=== PATIENT | male | born 1950 | race Caucasian/White ===

== ENCOUNTER 2018-01-14 13:24 | Emergency (ER) | payer OTHER ==
[2018-01-14] MEDS ORDERED: IPRATROPIUM/ALBUTEROL SULFATE 3 ML SOLUTION IH ONE ×2 (14:32→16:22)
[2018-01-14] MEDS ORDERED: METHYLPREDNISOLONE SOD SUCC 125MG/2ML VIAL ONE (14:53)
== END 2018-01-14 17:50 | disposition home or self-care (01) ==
LOC: EDH 13:24
DX: J44.1 Chronic obstructive pulmonary disease with (acute) exacerbation (principal); Z85.038 Personal history of other malignant neoplasm of large intestine; Z85.46 Personal history of malignant neoplasm of prostate
CPT/HCPCS: 71045; 84484; 93005; 94640 ×2; 96374; 99285; J2930

== ENCOUNTER 2018-02-17 16:10 | Emergency (ER) | payer OTHER ==
[2018-02-17 16:32] LABS: BASOPHILS % (AUTO) 1.1 % (0.0-5.0); EOSINOPHILS % (AUTO) 3.9 % (0.0-8.0); HEMATOCRIT 42.6 % (42-54); LYMPHOCYTES % (AUTO) 18.5 % (21.0-51.0); MEAN CORPUSCULAR HEMOGLOBIN 28.4 pg (27.0-33.0); MEAN CORPUSCULAR HGB CONC 32.8 g/dL (32.0-36.0); MEAN CORPUSCULAR VOLUME 86.7 fL (79-99); MONOCYTES % (AUTO) 9.4 % (3.0-13.0); NEUTROPHILS % (AUTO) 67.1 % (40.0-77.0); NUCLEATED RED BLOOD CELLS 0.1 % (0.0-0.19); PLATELET COUNT (AUTO) 318 K/uL (130-400); RED BLOOD CELL COUNT(AUTO) 4.91 MIL/uL (4.50-6.20); RED CELL DISTRIBUTION WIDTH 14.4 % (11.0-15.5); WHITE BLOOD COUNT (AUTO) 8.2 K/uL (4.8-10.8)
[2018-02-17 16:35] LABS: CREATININE 1.1 mg/dL (0.5-1.5); POTASSIUM 4.4 mmol/L (3.5-5.1)
[2018-02-17 16:40] LABS: ALBUMIN 3.8 g/dL (3.5-5.0); BILIRUBIN,TOTAL 0.6 mg/dL (0.2-1.0); TOTAL PROTEIN, SERUM 7.9 g/dL (6.0-8.3)
[2018-02-17] MEDS ORDERED: IPRATROPIUM/ALBUTEROL SULFATE 3 ML SOLUTION IH ONE (16:40)
[2018-02-17 16:58] LABS: B-TYPE NATRIURETIC PEPTIDE 46 pg/mL (0-100)
[2018-02-17] MEDS ORDERED: METHYLPREDNISOLONE SOD SUCC 125MG/2ML VIAL ONE (16:59)
== END 2018-02-17 19:13 | disposition home or self-care (01) ==
LOC: EDH 16:10
DX: J44.1 Chronic obstructive pulmonary disease with (acute) exacerbation (principal); J98.4 Other disorders of lung; I10 Essential (primary) hypertension; F41.9 Anxiety disorder, unspecified; Z90.49 Acquired absence of other specified parts of digestive tract; Z87.891 Personal history of nicotine dependence
CPT/HCPCS: 36415; 71045; 80053; 80198; 83880; 84484; 85025; 93005; 94640; 96374; 99284; J2930

== ENCOUNTER → 2018-07-30 | Outpatient (CLI) | payer OTHER | END | disposition home or self-care (01) | LOC: SHCH 13:39 | PROVIDERS: ATTEND Internal Medicine Cardiovascular Disease | DX: I08.2 Rheumatic disorders of both aortic and tricuspid valves (principal); I11.9 Hypertensive heart disease without heart failure; I51.5 Myocardial degeneration; J44.9 Chronic obstructive pulmonary disease, unspecified | CPT/HCPCS: 93306 ==

== ENCOUNTER → 2020-03-16 | Outpatient (CLI) | payer OTHER | END | disposition home or self-care (01) | LOC: SHCH 12:50 | PROVIDERS: ATTEND Internal Medicine Cardiovascular Disease | DX: R60.9 Edema, unspecified (principal) | CPT/HCPCS: 93970 ==

== ENCOUNTER → 2023-02-28 | Outpatient (CLI) | payer OTHER | END | disposition home or self-care (01) | LOC: RAH 12:48 | PROVIDERS: ATTEND Family Medicine | DX: I31.39 Other pericardial effusion (noninflammatory) (principal); I08.3 Combined rheumatic disorders of mitral, aortic and tricuspid valves | CPT/HCPCS: 93306 ==

== ENCOUNTER → 2023-04-11 | Outpatient (CLI) | payer OTHER | END | disposition home or self-care (01) | LOC: RAH 10:01 | PROVIDERS: ATTEND Internal Medicine Gastroenterology | DX: R10.13 Epigastric pain (principal) | CPT/HCPCS: 78264; A9541 ==

== ENCOUNTER → 2023-11-11 | Outpatient (CLI) | payer OTHER | END | disposition home or self-care (01) | LOC: RAH 09:18 | PROVIDERS: ATTEND Internal Medicine Gastroenterology | DX: K21.9 Gastro-esophageal reflux disease without esophagitis (principal); K44.9 Diaphragmatic hernia without obstruction or gangrene; Z98.890 Other specified postprocedural states; Z90.49 Acquired absence of other specified parts of digestive tract | CPT/HCPCS: 74240 ==

== ENCOUNTER 2025-02-01 08:06 | Day surgery (SDC) | payer OTHER ==
[2025-02-01 09:05] LABS: IMMATURE GRANULOCYTE ABSOLUTE 0.02 K/uL (0-1); NUCLEATED RED BLOOD CELLS 0.0 % (0.0-0.19); PLATELET COUNT (AUTO) 220 K/uL (130-400); RED BLOOD CELL COUNT(AUTO) 4.18 MIL/uL (4.50-6.20); RED CELL DISTRIBUTION WIDTH 14.5 % (11.0-15.5); WHITE BLOOD COUNT (AUTO) 7.2 K/uL (4.8-10.8)
[2025-02-01 09:18] LABS: CREATININE 0.8 mg/dL (0.5-1.3); GLOMERULAR FILTR. RATE CALC 92.0 mL/min (>90); GLUCOSE,RANDOM 100.0 mg/dL (70-105); SODIUM SERUM 142.0 mmol/L (136-145); UREA NITROGEN, BLOOD 12.0 mg/dL (7-18)
[2025-02-01 09:21] LABS: ASPARTATE AMINOTRANSFERASE 14.0 U/L (10-37); TOTAL PROTEIN, SERUM 6.3 g/dL (6.0-8.3)
--- NOTE | 2025-02-01 12:10 | NUR ---
CT GD RT LUNG BX BX PROCEDURE PERFORMED BY DR GAMING. PUNCTURE SITE RT UPPER CHEST AND PATIENT TOLERATED PROCEDURE WELL. SPECIMEN X 4 COLLECTED AND SENT TO LAB. END OF PROCEDURE AT 1200. BIOPSY NEEDLE REMOVED AND DRESSING APPLIED. NO BLEEDING NOTED. REPORT GIVEN TO Nick RAMSEY LVN AND PATIENT TRANSPORTED TO DAY PT VIA BED. AAO X3 WITH NO C/O PAIN.
[2025-02-01] MEDS: MIDAZOLAM HCL 1 MG/ML 2ML VIAL ONE (12:22)
[2025-02-01 12:24] VITALS: BP 171/52; PULSE 59; RESP 15; TEMP 98.4
[2025-02-01 12:40] VITALS: BP 171/52; PULSE 59; RESP 15
[2025-02-01 12:55] VITALS: BP 154/52; PULSE 64; RESP 14
[2025-02-01 13:10] VITALS: BP 156/49; PULSE 62; RESP 15
[2025-02-01 13:25] VITALS: BP 153/44; PULSE 59; RESP 16
[2025-02-01 13:40] VITALS: BP 135/54; PULSE 58; RESP 15
--- NOTE | 2025-02-01 13:45 | HMCIMG ---
CHEST 1VW REASON: POST RT LUNG BX COMPARISON: Prior study from 02/17/2018 is available. FINDINGS: Single view of the chest was obtained. Lungs are clear. There is no evidence of pneumothorax. There is cardiomegaly with left ventricular contour. There is a loop recorder seen in the left mid chest.. There is no pulmonary vascular congestion. Mediastinum and bony thorax appear unremarkable. IMPRESSION: 1. No pneumothorax post right lung biopsy 2. Cardiomegaly 3. No evidence of airspace consolidation or pulmonary venous congestion..
--- NOTE | 2025-02-01 13:55 | NUR ---
DR. GAMING REVIEWED REPEAT CXR STATES PNUEMO CLEARED. BOTH PT AND FRIEND GIVEN VERBAL AND WRITTEN DISCHARGE INSTRUCTIONS. IV REMOVED SITE ASYMPTOMATIC. PT DENIES ANY SOB CHEST PAIN STATES FEELING WELL
--- NOTE | 2025-02-01 14:00 | NUR ---
PT TAKEN OUT VIA WHEELCHAIR FRIEND DRIVING.
--- NOTE | 2025-02-01 15:18 | HMCIMG ---
PROCEDURE: CT-guided right lobe nodule biopsy. INDICATION: LUNG MASS TECHNIQUE: Informed written consent was obtained after explaining the procedure and potential complications to the patient . The patient was placed supine on the CT table and images of the chest. Timeout performed. Chest wall was prepped and draped in a sterile fashion. Local anesthesia applied. Using CT guidance, a needle introducer was advanced through the chest wall and into a 1 cm cm right lower lobe nodule. 4 passes were made with an 20-gauge Bard gun coring needle. The needle introducer was removed and sterile dressing applied. Completion images revealed no hemorrhage or pneumothorax. Patient tolerated the exam well and was discharged from the department in good condition. Postbiopsy demonstrated is small less than 5% right-sided pneumothorax in the lower lung.. There is mild lung contusion at the biopsy site. Conscious sedation provided by a registered nurse monitored the patient vital signs throughout and after procedure. Sample sent to in normal saline for histology in cultures. IMPRESSION: Successful CT-guided right lung nodule biopsy. Postbiopsy demonstrated a small pneumothorax less than 5% right lower lung. Patient is to have follow-up chest radiograph in 2 hours.
== END 2025-02-01 14:05 | disposition home or self-care (01) ==
LOC: DAH 08:06
PROVIDERS: ATTEND Internal Medicine Hematology & Oncology
DX: J60 Coalworker's pneumoconiosis (principal); J98.4 Other disorders of lung; J44.1 Chronic obstructive pulmonary disease with (acute) exacerbation; I25.10 Atherosclerotic heart disease of native coronary artery without angina pectoris; I10 Essential (primary) hypertension; G47.00 Insomnia, unspecified; N40.0 Benign prostatic hyperplasia without lower urinary tract symptoms; F41.9 Anxiety disorder, unspecified; E07.9 Disorder of thyroid, unspecified; Z86.73 Personal history of transient ischemic attack (TIA), and cerebral infarction without residual deficits; Z90.49 Acquired absence of other specified parts of digestive tract; Z87.891 Personal history of nicotine dependence; Z79.01 Long term (current) use of anticoagulants; Z79.899 Other long term (current) drug therapy; Z98.890 Other specified postprocedural states
CPT/HCPCS: 80053; 85025; 85730; 36415; 71045; 32408; A4223 ×3; J3010; J2250; A4215; A4222; A4221; A4663; A4216; A4606; 32405; 77012; 88305

== ENCOUNTER → 2025-02-02 | Outpatient (CLI) | payer OTHER ==
--- NOTE | 2025-02-02 11:04 | HMCIMG ---
CHEST 1VW REASON: S/P LUNG BIOPSY 01/31/25; R/O PNUEMOTHORAX COMPARISON: None. FINDINGS: Single view of the chest was obtained. There is small less than 10% right apical pneumothorax. There is cardiomegaly with left ventricular contour. There is a loop recorder seen in left mid chest. There is a moderate-sized hiatal hernia. There are multiple surgical clips seen at the GE junction.. There is no pulmonary vascular congestion. Mediastinum and bony thorax appear unremarkable. The bony thorax demonstrate osteopenia IMPRESSION: 1. Small left apical pneumothorax less than 10% patient is to return for follow-up chest radiograph 2. Cardiomegaly with left ventricular contour 3. Moderate size hiatal hernia.
== END | disposition home or self-care (01) ==
LOC: RAH 10:20
PROVIDERS: ATTEND Internal Medicine Hematology & Oncology
DX: J93.83 Other pneumothorax (principal); I51.7 Cardiomegaly; K44.9 Diaphragmatic hernia without obstruction or gangrene; Z98.890 Other specified postprocedural states
CPT/HCPCS: 71045

== ENCOUNTER → 2025-02-03 | Outpatient (CLI) | payer OTHER ==
--- NOTE | 2025-02-03 10:45 | HMCIMG ---
EXAM: CR Chest, 1 View. CLINICAL HISTORY: S/P LUNG BIOPSY/ R/O PNEUMOTHORAX COMPARISON: Radiograph from February 02, 2025 Findings: Small right apical pneumothorax, approximately 5 to 10% in size. Small bilateral effusions. Mild bibasilar atelectasis. Suspected small hiatal hernia. Heart size is stable. Pulmonary vessels are within normal limits. IMPRESSION: 1. Small right apical pneumothorax, approximately 5-10% in size. 2. Small bilateral pleural effusions. /[place]
== END | disposition home or self-care (01) ==
LOC: RAH 09:25
PROVIDERS: ATTEND Internal Medicine Hematology & Oncology
DX: J90 Pleural effusion, not elsewhere classified (principal); J93.9 Pneumothorax, unspecified; Z98.890 Other specified postprocedural states
CPT/HCPCS: 71045